=== PATIENT | male | born 1935 | race Caucasian/White ===

== ENCOUNTER 2016-09-18 13:02 | Inpatient (IN) | payer OTHER ==
[~2016-09-18] VITALS: Ht 185.4 cm; Wt 65.2 kg
[2016-09-18 13:51] LABS: Basophils # (auto) 0.1 uL; DEFINITIVE VIEW TRANSMISSION; Eosinophils # (auto) 0.3 uL; Eosinophils % (auto) 3.4 % (0.0-7.0); Hematocrit 34.5 % (41.0-53.0); Hemoglobin 11.3 g/dL (13.5-17.5); Lymphocytes % (auto) 21.7 % (10.0-50.0); Mean Corpuscular Hemoglobin 34.1 pg (28.0-32.0); Mean Corpuscular Hgb Conc. 32.9 g/dL (32.0-36.0); Mean Corpuscular Volume 103.7 fL (80.0-100.0); Mean Platelet Volume 7.4 fL (7.4-10.4); Monocytes # (auto) 0.7 uL; Monocytes % (auto) 7.3 % (0.0-12.0); Neutrophils # (auto) 6.1 uL; Neutrophils % (auto) 66.6 % (37.0-80.0); Platelet Count (auto) 240 10^3/uL (140-450); Red Cell Distribution Width 12.6 % (11.6-16.0); White Blood Cell 9.2 10^3/uL (4.4-10.8)
[2016-09-18 14:10] LABS: Albumin 3.7 g/dL (3.4-5.0); BUN/Creatinine Ratio 25.9; Bilirubin, Total 0.7 mg/dL (0.2-1.0); Calcium 9.6 mg/dL (8.5-10.1); Magnesium 2.5 mg/dL (1.6-2.6); Potassium 4.4 mmol/L (3.5-5.1); Total Protein 7.6 g/dL (6.4-8.2)
[2016-09-18 14:12] LABS: Lactic Acid 4.6 mmol/L (0.4-2.0)
[2016-09-18 14:38] LABS: Urine RBC None Seen /hpf (0 - 3)
[2016-09-18 14:46] LABS: REFLEX LACTIC ACID YES OR NO YES
[2016-09-18 14:58] LABS: Urine Bilirubin Negative (Negative); Urine Blood Negative /uL (Negative); Urine Color Yellow (Yellow); Urine Glucose Normal (Normal); Urine Ketone Negative (Negative); Urine Nitrite Negative (Negative); Urine Urobilinogen Normal (Negative); Urine pH 5.5 (5.0-8.0)
[2016-09-18 15:51] LABS: Lactic Acid 2.4 mmol/L (0.4-2.0)
[2016-09-18] MEDS ORDERED: THIAMINE HCL 100 MG/ML 2ML VIAL IV ONE (16:00)
[2016-09-18] MEDS ORDERED: NITROGLYCERIN 0.4 MG SL TAB SL PRN (16:00)
[2016-09-18] MEDS ORDERED: MORPHINE SULF INJ 2 MG/ML SYRINGE 1ML IV PRN (16:00)
[2016-09-18] MEDS ORDERED: cefTRIAXone 1GM/50ML D5W 50 ML IV ONE ×2 (16:15)
[2016-09-18] MEDS: SOD CHL 0.45% 1,000 ML IV SCH (16:35)
[2016-09-18 16:49] LABS: REFLEX LACTIC ACID YES OR NO NO
[2016-09-18] MEDS ORDERED: CLINDAMYCIN 600MG IV 50 ML IV ONE (17:00)
[2016-09-18] MEDS: PANTOPRAZOLE SODIUM 40 MG/10 ML VIAL IV SCH (17:10)
[2016-09-18] MEDS: ENOXAPARIN SOD 30 MG/0.3 ML SYRINGE SC SCH (17:10)
[2016-09-18] MEDS ORDERED: AZITHROMYCIN 500MG/D5W 250ML 250 ML IV ONE (18:00)
[2016-09-18 19:13] VITALS: BP 137/80
[2016-09-18 22:00] VITALS: BP 137/80
[2016-09-18] MEDS ORDERED: ENAL2.5T PO (23:06)
[2016-09-18] MEDS ORDERED: CARV3.1240 PO (23:06)
[2016-09-18] MEDS ORDERED: MEGE20TA4 PO (23:06)
[2016-09-18] MEDS ORDERED: BACL10TA PO (23:07)
[2016-09-18] MEDS: CLINDAMYCIN 600MG IV 50 ML IV SCH (23:27)
[2016-09-19] MEDS: SOD CHL 0.45% 1,000 ML IV SCH (02:05)
[2016-09-19 05:00] VITALS: BP 156/84
[2016-09-19] MEDS: CLINDAMYCIN 600MG IV 50 ML IV SCH (05:04)
[2016-09-19 05:59] LABS: Basophils # (auto) 0 uL; Basophils % (auto) 0.3 % (0.0-2.0); Eosinophils # (auto) 0.1 uL; Eosinophils % (auto) 1.1 % (0.0-7.0); Hematocrit 28.4 % (41.0-53.0); Hemoglobin 9.5 g/dL (13.5-17.5); Lymphocytes # (auto) 1.3 uL; Lymphocytes % (auto) 17.5 % (10.0-50.0); Mean Corpuscular Hemoglobin 33.8 pg (28.0-32.0); Mean Corpuscular Hgb Conc. 33.3 g/dL (32.0-36.0); Mean Corpuscular Volume 101.2 fL (80.0-100.0); Mean Platelet Volume 7.6 fL (7.4-10.4); Monocytes # (auto) 0.8 uL; Monocytes % (auto) 10.6 % (0.0-12.0); Neutrophils # (auto) 5.2 uL; Neutrophils % (auto) 70.5 % (37.0-80.0); Platelet Count (auto) 224 10^3/uL (140-450); Red Cell Distribution Width 13.2 % (11.6-16.0); White Blood Cell 7.4 10^3/uL (4.4-10.8)
[2016-09-19 06:28] LABS: Albumin 3.3 g/dL (3.4-5.0); BUN/Creatinine Ratio 27.7; Bilirubin, Total 0.6 mg/dL (0.2-1.0); Calcium 9.3 mg/dL (8.5-10.1); Potassium 4.2 mmol/L (3.5-5.1); Total Protein 6.7 g/dL (6.4-8.2)
[2016-09-19 09:00] VITALS: BP 149/87
[2016-09-19] MEDS ORDERED: cefTRIAXone 1GM/50ML D5W 50 ML IV SCH (09:00)
[2016-09-19] MEDS: PANTOPRAZOLE SODIUM 40 MG/10 ML VIAL IV SCH (09:08)
[2016-09-19] MEDS: ENOXAPARIN SOD 30 MG/0.3 ML SYRINGE SC SCH (09:08)
[2016-09-19] MEDS: THIAMINE HCL 100 MG/ML 2ML VIAL IV SCH (09:09)
[2016-09-19] MEDS ORDERED: AZITHROMYCIN 500MG/D5W 250ML 250 ML IV SCH (10:00)
[2016-09-19] MEDS: PIPERACILLIN-TAZOB 2.25GM 50 ML IV SCH ×3 (12:40→23:16)
[2016-09-19 13:00] VITALS: BP 146/88
[2016-09-19] MEDS: SODIUM BICARBONATE 50ML VIAL 50 ML in D5W 5% 1,000 ML IV SCH (15:11)
[2016-09-19] MEDS ORDERED: DOCUSATE SOD 100 MG CAP PO ONE (15:30)
[2016-09-19 16:54] VITALS: BP 143/80
[2016-09-19] MEDS: DOCUSATE SOD 100 MG CAP PO SCH (21:24)
[2016-09-19 21:47] VITALS: BP 148/71
[2016-09-19 22:00] VITALS: BP 148/71
[2016-09-20] MEDS: SODIUM BICARBONATE 50ML VIAL 50 ML in D5W 5% 1,000 ML IV SCH (04:56)
[2016-09-20] MEDS: PIPERACILLIN-TAZOB 2.25GM 50 ML IV SCH ×4 (05:05→23:51)
[2016-09-20 05:22] VITALS: BP 135/86
[2016-09-20 09:00] VITALS: BP 125/72
[2016-09-20] MEDS: THIAMINE HCL 100 MG/ML 2ML VIAL IV SCH (11:06)
[2016-09-20] MEDS: PANTOPRAZOLE SODIUM 40 MG/10 ML VIAL IV SCH (11:06)
[2016-09-20 13:00] VITALS: BP 122/65
[2016-09-20 13:03] LABS: Basophils # (auto) 0 uL; Basophils % (auto) 0.3 % (0.0-2.0); Eosinophils # (auto) 0.1 uL; Eosinophils % (auto) 2.1 % (0.0-7.0); Hematocrit 29.2 % (41.0-53.0); Hemoglobin 9.8 g/dL (13.5-17.5); Lymphocytes # (auto) 1.3 uL; Lymphocytes % (auto) 18.7 % (10.0-50.0); Mean Corpuscular Hemoglobin 33.8 pg (28.0-32.0); Mean Corpuscular Hgb Conc. 33.4 g/dL (32.0-36.0); Mean Platelet Volume 7.8 fL (7.4-10.4); Monocytes # (auto) 0.8 uL; Monocytes % (auto) 11.4 % (0.0-12.0); Neutrophils # (auto) 4.5 uL; Neutrophils % (auto) 67.5 % (37.0-80.0); Platelet Count (auto) 232 10^3/uL (140-450); Red Cell Distribution Width 13.2 % (11.6-16.0); White Blood Cell 6.7 10^3/uL (4.4-10.8)
[2016-09-20 13:17] LABS: INR 1.18 (0.9-1.15); Prothrombin Time 12.2 sec (9.37-12.3)
[2016-09-20 13:22] LABS: BUN/Creatinine Ratio 20.3; Magnesium 2.1 mg/dL (1.6-2.6); Potassium 3.8 mmol/L (3.5-5.1)
[2016-09-20] MEDS: ENOXAPARIN SOD 30 MG/0.3 ML SYRINGE SC SCH (13:33)
[2016-09-20] MEDS: DOCUSATE SOD 100 MG CAP PO SCH ×2 (13:33→22:04)
[2016-09-20 17:00] VITALS: BP 142/72
[2016-09-20] MEDS: SODIUM CHLORIDE 0.9% 1,000 ML IV SCH (18:18)
[2016-09-20 22:00] VITALS: BP 117/64
[2016-09-21] MEDS: SODIUM CHLORIDE 0.9% 1,000 ML IV SCH ×2 (05:14→17:17)
[2016-09-21 05:31] VITALS: BP 132/89
[2016-09-21] MEDS: PIPERACILLIN-TAZOB 2.25GM 50 ML IV SCH ×3 (05:58→17:16)
[2016-09-21 07:44] LABS: Calcium 8.2 mg/dL (8.5-10.1); Potassium 3.8 mmol/L (3.5-5.1)
[2016-09-21 07:46] LABS: BUN/Creatinine Ratio 25.4
[2016-09-21 09:00] VITALS: BP 131/54
[2016-09-21] MEDS: PANTOPRAZOLE SODIUM 40 MG/10 ML VIAL IV SCH (10:16)
[2016-09-21] MEDS: THIAMINE HCL 100 MG/ML 2ML VIAL IV SCH (10:16)
[2016-09-21] MEDS: DOCUSATE SOD 100 MG CAP PO SCH ×2 (10:17→22:01)
[2016-09-21] MEDS: ENOXAPARIN SOD 30 MG/0.3 ML SYRINGE SC SCH (10:28)
[2016-09-21 13:00] VITALS: BP 129/89
[2016-09-21 17:00] VITALS: BP 138/69
[2016-09-21 20:06] LABS: Vitamin D 25-Hydroxy 36 ng/mL (.); Vitamin D-2 25-Hydroxy <1.0 ng/mL (.)
[2016-09-21 22:00] VITALS: BP 150/78
[2016-09-22] MEDS: PIPERACILLIN-TAZOB 2.25GM 50 ML IV SCH ×3 (00:03→12:05)
[2016-09-22 05:52] LABS: Basophils # (auto) 0 uL; Basophils % (auto) 0.5 % (0.0-2.0); DEFINITIVE VIEW TRANSMISSION; Eosinophils # (auto) 0.3 uL; Eosinophils % (auto) 4.4 % (0.0-7.0); Hematocrit 25.2 % (41.0-53.0); Hemoglobin 8.4 g/dL (13.5-17.5); Lymphocytes # (auto) 1.3 uL; Lymphocytes % (auto) 20.4 % (10.0-50.0); Mean Corpuscular Hemoglobin 33.7 pg (28.0-32.0); Mean Corpuscular Hgb Conc. 33.5 g/dL (32.0-36.0); Mean Corpuscular Volume 100.8 fL (80.0-100.0); Mean Platelet Volume 7.2 fL (7.4-10.4); Monocytes # (auto) 0.8 uL; Monocytes % (auto) 12.5 % (0.0-12.0); Neutrophils # (auto) 3.9 uL; Neutrophils % (auto) 62.2 % (37.0-80.0); Platelet Count (auto) 203 10^3/uL (140-450); Red Cell Distribution Width 13.2 % (11.6-16.0); White Blood Cell 6.2 10^3/uL (4.4-10.8)
[2016-09-22 06:00] VITALS: BP 143/83
[2016-09-22 06:10] LABS: Potassium 3.9 mmol/L (3.5-5.1)
[2016-09-22 06:12] LABS: BUN/Creatinine Ratio 24.7
[2016-09-22] MEDS: SODIUM CHLORIDE 0.9% 1,000 ML IV SCH (08:00)
[2016-09-22 09:30] VITALS: BP 133/73
[2016-09-22] MEDS: ENOXAPARIN SOD 30 MG/0.3 ML SYRINGE SC SCH (09:57)
[2016-09-22] MEDS: THIAMINE HCL 100 MG/ML 2ML VIAL IV SCH (09:57)
[2016-09-22] MEDS: DOCUSATE SOD 100 MG CAP PO SCH (09:57)
[2016-09-22] MEDS: PANTOPRAZOLE SODIUM 40 MG/10 ML VIAL IV SCH (09:57)
[2016-09-22 13:30] VITALS: BP 144/74
[2016-09-22] MEDS ORDERED: ACETAMINOPHEN 325 MG TAB PO PRN (13:45)
[2016-09-22 14:55] VITALS: BP 144/74
== END 2016-09-22 17:30 | DRG 871 ==
LOC: ER 13:12 → TELE 13:13 → TELE-WESTW 20:19 → WEST WING 09-21 18:27
PROVIDERS: ADMIT Internal Medicine; ATTEND Internal Medicine
DX: A41.9 Sepsis, unspecified organism (principal); G92 Toxic encephalopathy; N17.0 Acute kidney failure with tubular necrosis; J69.0 Pneumonitis due to inhalation of food and vomit; E44.0 Moderate protein-calorie malnutrition; Z68.1 Body mass index [BMI] 19.9 or less, adult; E87.0 Hyperosmolality and hypernatremia; E87.2 Acidosis; D63.8 Anemia in other chronic diseases classified elsewhere; G30.9 Alzheimer's disease, unspecified; F02.80 Dementia in other diseases classified elsewhere, unspecified severity, without behavioral disturbance, psychotic disturbance, mood disturbance, and anxiety; I25.10 Atherosclerotic heart disease of native coronary artery without angina pectoris; Z66 Do not resuscitate; Z86.73 Personal history of transient ischemic attack (TIA), and cerebral infarction without residual deficits; Z95.0 Presence of cardiac pacemaker; E86.0 Dehydration; I12.9 Hypertensive chronic kidney disease with stage 1 through stage 4 chronic kidney disease, or unspecified chronic kidney disease; N18.3 Chronic kidney disease, stage 3 (moderate)
CPT/HCPCS: 36415; 70450; 71010; 76775; 80048; 80053; 81001; 82306; 82570; 82607; 83605; 83735; 83970; 84100; 84156; 84300; 84443; 84484; 85025; 85610; 87040; 87086; 93005; 93306; 94761; 96365; 96368; 96375; C9113; G0434; J0696; J2543; J3490

== ENCOUNTER 2018-05-18 14:26 | Emergency (ER) | payer OTHER ==
[~2018-05-18] VITALS: Ht 185.4 cm; Wt 68.0 kg
[~2018-05-18 14:26] MED LIST: CARV3.1240 PO; ENAL2.5T PO; MEGE20TA4 PO
[2018-05-18 15:54] LABS: Albumin 3.7 g/dL (3.4-5.0); BUN/Creatinine Ratio 18.1; Bilirubin, Total 0.5 mg/dL (0.2-1.0); Calcium 8.8 mg/dL (8.5-10.1); Potassium 4.5 mmol/L (3.5-5.1); Total Protein 7.5 g/dL (6.4-8.2)
[2018-05-18 17:49] LABS: Basophils # (auto) 0 uL; Eosinophils # (auto) 0.2 uL; Lymphocytes # (auto) 2.1 uL; Monocytes # (auto) 0.7 uL; Neutrophils # (auto) 3.5 uL; Nucleated Red Blood Cells % 0.1 %; White Blood Cell 6.5 10^3/uL (4.4-10.8)
[2018-05-18 17:51] LABS: Basophils % (auto) 0.6 % (0.0-2.0); Eosinophils % (auto) 2.6 % (0.0-7.0); Hemoglobin 11.5 g/dL (13.5-17.5); Lymphocytes % (auto) 32.1 % (10.0-50.0); Mean Corpuscular Hemoglobin 34.1 pg (28.0-32.0); Mean Corpuscular Hgb Conc. 33.8 g/dL (32.0-36.0); Mean Corpuscular Volume 100.9 fL (80.0-100.0); Monocytes % (auto) 10.5 % (0.0-12.0); Neutrophils % (auto) 54.2 % (37.0-80.0); Platelet Count (auto) 293 10^3/uL (140-450); Red Blood Cells 3.37 10^6/uL (4.5-5.90); Red Cell Distribution Width 13.9 % (11.8-14.3)
[2018-05-18 19:18] LABS: Urine Bacteria NONE SEEN /hpf (None Seen); Urine Blood Negative /uL (Negative); Urine Mucus FEW (None Seen); Urine Specific Gravity 1.025 (1.001-1.035); Urine WBC 3 /hpf (0 - 3)
[2018-05-18 19:30] VITALS: BP 131/93
== END 2018-05-18 20:18 | disposition home or self-care (01) ==
LOC: ER 14:29
DX: R53.1 Weakness (principal); E78.5 Hyperlipidemia, unspecified; K21.9 Gastro-esophageal reflux disease without esophagitis; I25.10 Atherosclerotic heart disease of native coronary artery without angina pectoris; I10 Essential (primary) hypertension; Z95.0 Presence of cardiac pacemaker; Z79.899 Other long term (current) drug therapy; Z86.73 Personal history of transient ischemic attack (TIA), and cerebral infarction without residual deficits
CPT/HCPCS: 36415; 70450; 80053; 81001; 83735; 84484; 85025; 93005; 94761

== ENCOUNTER → 2018-08-11 | Outpatient (CLI) | payer OTHER ==
[2018-08-11 08:58] LABS: Basophils # (auto) 0 uL; Basophils % (auto) 0.6 % (0.0-2.0); Eosinophils # (auto) 0.2 uL; Eosinophils % (auto) 2.9 % (0.0-7.0); Hematocrit 35.7 % (41.0-53.0); Hemoglobin 11.9 g/dL (13.5-17.5); Lymphocytes % (auto) 36.8 % (10.0-50.0); Mean Corpuscular Hemoglobin 33.7 pg (28.0-32.0); Mean Corpuscular Hgb Conc. 33.3 g/dL (32.0-36.0); Mean Corpuscular Volume 101.5 fL (80.0-100.0); Monocytes # (auto) 0.5 uL; Monocytes % (auto) 9.7 % (0.0-12.0); Neutrophils # (auto) 2.7 uL; Platelet Count (auto) 199 10^3/uL (140-450); Red Blood Cells 3.51 10^6/uL (4.5-5.90); White Blood Cell 5.5 10^3/uL (4.4-10.8)
[2018-08-11 09:22] LABS: Albumin 3.8 g/dL (3.4-5.0); Calcium 9.3 mg/dL (8.5-10.1); Potassium 4.7 mmol/L (3.5-5.1)
[2018-08-11 09:28] LABS: BUN/Creatinine Ratio 20.2; Bilirubin, Total 0.5 mg/dL (0.2-1.0); Total Protein 7.4 g/dL (6.4-8.2)
== END | disposition home or self-care (01) ==
LOC: LAB 08:34
PROVIDERS: ATTEND Physician Assistant
DX: N40.0 Benign prostatic hyperplasia without lower urinary tract symptoms (principal); F03.90 Unspecified dementia, unspecified severity, without behavioral disturbance, psychotic disturbance, mood disturbance, and anxiety; I13.0 Hypertensive heart and chronic kidney disease with heart failure and stage 1 through stage 4 chronic kidney disease, or unspecified chronic kidney disease; N18.9 Chronic kidney disease, unspecified; I50.40 Unspecified combined systolic (congestive) and diastolic (congestive) heart failure
CPT/HCPCS: 36415; 80053; 80061; 84153; 85025

== ENCOUNTER → 2019-07-05 | Outpatient (CLI) | payer OTHER ==
[2019-07-05 10:50] LABS: Basophils # (auto) 0 uL; Basophils % (auto) 0.7 % (0.0-2.0); Eosinophils # (auto) 0.1 uL; Eosinophils % (auto) 2.5 % (0.0-7.0); Hematocrit 33.8 % (41.0-53.0); Hemoglobin 11.7 g/dL (13.5-17.5); Lymphocytes # (auto) 1.9 uL; Lymphocytes % (auto) 31.4 % (10.0-50.0); Mean Corpuscular Hemoglobin 34.9 pg (28.0-32.0); Mean Corpuscular Hgb Conc. 34.6 g/dL (32.0-36.0); Monocytes # (auto) 0.5 uL; Monocytes % (auto) 8.8 % (0.0-12.0); Neutrophils # (auto) 3.5 uL; Neutrophils % (auto) 56.6 % (37.0-80.0); Nucleated Red Blood Cells % 0.1 %; Platelet Count (auto) 216 10^3/uL (140-450); Red Blood Cells 3.35 10^6/uL (4.5-5.90); Red Cell Distribution Width 14.2 % (11.8-14.3); White Blood Cell 6.1 10^3/uL (4.4-10.8)
[2019-07-05 11:13] LABS: Potassium 4.5 mmol/L (3.5-5.1)
[2019-07-05 11:25] LABS: Albumin 3.5 g/dL (3.4-5.0); BUN/Creatinine Ratio 18.4; Bilirubin, Total 0.6 mg/dL (0.2-1.0); Calcium 9.2 mg/dL (8.5-10.1)
== END | disposition home or self-care (01) ==
LOC: LAB 09:25
PROVIDERS: ATTEND Physician Assistant
DX: N40.1 Benign prostatic hyperplasia with lower urinary tract symptoms (principal); I13.0 Hypertensive heart and chronic kidney disease with heart failure and stage 1 through stage 4 chronic kidney disease, or unspecified chronic kidney disease; I50.22 Chronic systolic (congestive) heart failure; N18.9 Chronic kidney disease, unspecified; D53.9 Nutritional anemia, unspecified; G30.1 Alzheimer's disease with late onset
CPT/HCPCS: 36415; 80053; 80061; 84153; 85025

== ENCOUNTER → 2019-08-26 | Outpatient (CLI) | payer OTHER | END | disposition home or self-care (01) | LOC: XYW 08:53 | PROVIDERS: ATTEND Internal Medicine | DX: I07.1 Rheumatic tricuspid insufficiency (principal); I10 Essential (primary) hypertension | CPT/HCPCS: 93306 ==